=== PATIENT | male | born 1945 | race Caucasian/White ===

== ENCOUNTER 2020-06-17 09:18 | Inpatient (IN) | payer MEDICARE, BC ==
[2020-06-17] MEDS ORDERED: HYDROmorphone 0.5 MG/0.5 ML Syringe IVPUSH ONE ×2 (09:59→15:27)
[2020-06-17] MEDS ORDERED: Ondansetron 4 MG/2 ML SDV IVPUSH ONE (09:59)
[2020-06-17] MEDS ORDERED: Sodium Chloride 0.9% 10 ML Syringe FLUSH PRN ×2 (09:59→11:59)
[2020-06-17] MEDS ORDERED: Sodium Chloride 0.9% 1,000 ML IV SCH (10:00)
[2020-06-17] MEDS ORDERED: HYDROmorphone 0.5 MG/0.5 ML Syringe ONE ×2 (10:21→22:36)
[2020-06-17] MEDS ORDERED: Ondansetron 4 MG/2 ML SDV ONE ×2 (10:21→21:32)
[2020-06-17] MEDS ORDERED: Sodium Chloride 0.9% 1,000 ML ONE (10:22)
--- NOTE | 2020-06-17 10:41 | CR ---
Abdomen: Supine view of the abdomen was obtained as well as upright study. Comparison: No prior abdominal imaging. Dilated small bowel loops are seen which show evidence of air-fluid levels. Findings are compatible with mid to distal small bowel obstruction. No free air is identified. No soft tissue abnormality is appreciated. Surgical clips are seen within the upper right abdomen. Bony structures appear within normal limits for the patient's age. Impression: 1. Findings compatible with fairly high-grade mid to distal small bowel obstruction. Diagnostic code #5 This report was dictated in MDT
[2020-06-17] MEDS ORDERED: Iopamidol 612 MG/ML 100 ML Bottle IVPUSH ONE (11:59)
[2020-06-17] MEDS ORDERED: Diatrizoate Meglumine/Diatrizoate Sodium 37% 120 ML Bottle PO ONE (11:59)
--- NOTE | 2020-06-17 12:51 | EDM.PDOC ---
ED HPI GENERAL MEDICAL PROBLEM - General Chief Complaint: Abdominal Pain Stated Complaint: ABDOMINAL PAIN Time Seen by Provider: 06/17/20 09:36 Source of Information: Reports: Patient, RN Notes Reviewed - History of Present Illness INITIAL COMMENTS - FREE TEXT/NARRATIVE: 75 yr old male with onset of abd pain last evening. Pain continues today, intermitent severe cramping. He has had nausea, no vomiting. No BM for 3 days which is very unusual for him. No chest pain, cough, fever or chills. Hx of "perforated ulcer about 3 yrs ago". Had open surgery at that time in [place]. No prior GI sx leading up to onset of pain yesterday. Hx of prior Appy. about 14 yrs ago. Abdominal Pain Score (Numeric/FACES): 5 - Related Data Allergies Allergy/AdvReac Type Severity Reaction Status Date / Time No Known Allergies Allergy Verified 06/17/20 09:28 Home Meds: Home Meds . [No Known Home Meds] 06/17/20 [History] Past Medical History - Infectious Disease History Infectious Disease History: Reports: Chicken Pox, Measles - Past Surgical History HEENT Surgical History: Reports: Tonsillectomy GI Surgical History: Reports: Appendectomy, Hernia, Inguinal Social & Family History - Tobacco Use Smoking Status *Q: Current Every Day Smoker Years of Tobacco use: 50 Packs/Tins Daily: 1 - Caffeine Use Caffeine Use: Reports: None - Recreational Drug Use Recreational Drug Use: No ED ROS GENERAL - Review of Systems Review Of Systems: See Below Constitutional: Denies: Fever, Chills, Diaphoresis HEENT: Reports: No Symptoms Respiratory: Denies: Shortness of Breath, Cough Cardiovascular: Denies: Chest Pain GI/Abdominal: Reports: Abdominal Pain, Constipation, Nausea. Denies: Diarrhea, Hematochezia, Melena, Vomiting Musculoskeletal: Reports: No Symptoms Skin: Reports: No Symptoms Neurological: Reports: No Symptoms ED EXAM, GI/ABD - Physical Exam Exam: See Below General Appearance: Alert, Moderate Distress Head: Atraumatic Neck: Supple Respiratory/Chest: No Respiratory Distress, Lungs Clear, Normal Breath Sounds Cardiovascular: Regular Rate, Rhythm GI/Abdominal Exam: Guarding (mild), Rebound (mild), Tender (moderate tenderness upper, mid and L lower abd) Rectal (Males) Exam: No: Rectal Fissure Back Exam: No: CVA Tenderness (R) Extremities: Normal Inspection, Normal Range of Motion. No: Pedal Edema, Leg Pain Neurological: Alert, Oriented, No Motor/Sensory Deficits Skin Exam: Warm, Dry, Normal Color Course - Vital Signs Last Recorded V/S: Last Vital Signs Temp 97.1 F 06/17/20 09:28 Pulse 79 06/17/20 09:28 Resp 13 06/17/20 09:28 BP 151/87 H 06/17/20 09:28 Pulse Ox 93 L 06/17/20 09:28 - Orders/Labs/Meds Orders: Active Orders 24 hr Category Date Time Status Gastrointestinal Tube Mgmt [RC] ASDIRECTED Care 06/17/20 13:36 Active Peripheral IV Care [RC] . DIRECTED Care 06/17/20 09:59 Active Abdomen 1V Upright [CR] Stat Exams 06/17/20 13:36 Ordered Chest 1V Frontal [CR] Stat Exams 06/17/20 13:36 Ordered Lactated Ringers [Ringers, Lactated] 500 ml Med 06/17/20 13:28 Active IV .BOLUS Sodium Chloride 0.9% [Normal Saline] 1,000 ml Med 06/17/20 10:00 Active IV ONETIME Sodium Chloride 0.9% [Saline Flush] Med 06/17/20 09:59 Active 10 ml FLUSH ASDIRECTED PRN Sodium Chloride 0.9% [Saline Flush] Med 06/17/20 11:59 Active 10 ml FLUSH ONETIME PRN NG [Nasogastric Orogastric Tube Insertion] [OM.PC] Oth 06/17/20 13:36 Ordered Routine Peripheral IV Insertion Adult [OM.PC] Stat Oth 06/17/20 09:58 Ordered Medication Orders Sodium Chloride (Normal Saline) 1,000 mls @ 999 mls/hr IV ONETIME ROCÍO Last Admin: 06/17/20 10:26 Dose: 999 mls/hr Documented by: JIE Lactated Ringer's (Ringers, Lactated) 500 mls @ 999 mls/hr IV .BOLUS ONE Stop: 06/17/20 13:58 Last Admin: 06/17/20 13:30 Dose: 999 mls/hr Documented by: VALENTINA Sodium Chloride (Saline Flush) 10 ml FLUSH ASDIRECTED PRN PRN Reason: Keep Vein Open Last Admin: 06/17/20 10:27 Dose: 10 ml Documented by: JIE Sodium Chloride (Saline Flush) 10 ml FLUSH ONETIME PRN PRN Reason: Keep Vein Open Last Admin: 06/17/20 12:39 Dose: 10 ml Documented by: MIRIAN Labs: Laboratory Tests 06/17/20 06/17/20 06/17/20 Range/Units 09:40 09:40 09:40 WBC 5.27 (4.23-9.07) K/mm3 RBC 5.68 (4.63-6.08) M/mm3 Hgb 18.7 H (13.7-17.5) gm/dl Hct 55.2 H (40.1-51.0) % MCV 97.2 H (79.0-92.2) fl MCH 32.9 H (25.7-32.2) pg MCHC 33.9 (32.2-35.5) g/dl RDW Std Deviation 47.5 H (35.1-43.9) fL Plt Count 309 (163-337) K/mm3 MPV 9.7 (9.4-12.3) fl Neut % (Auto) 59.0 (34.0-67.9) % Lymph % (Auto) 16.3 L (21.8-53.1) % [place] % (Auto) 24.7 H (5.3-12.2) % Eos % (Auto) 0 L (0.8-7.0) Baso % (Auto) 0.0 L (0.1-1.2) % Neut # (Auto) 3.11 (1.78-5.38) K/mm3 Lymph # (Auto) 0.86 L (1.32-3.57) K/mm3 [place] # (Auto) 1.30 H (0.30-0.82) K/mm3 Eos # (Auto) 0.00 L (0.04-0.54) K/mm3 Baso # (Auto) 0.00 L (0.01-0.08) K/mm3 Manual Slide Review Abnormal smear Sodium 135 L (136-145) mEq/L Potassium 4.2 (3.5-5.1) mEq/L Chloride 94 L (98-107) mEq/L Carbon Dioxide 31 (21-32) mEq/L Anion Gap 14.2 (5-15) BUN 47 H (7-18) mg/dL Creatinine 1.6 H (0.7-1.3) mg/dL Est Cr Clr Drug Dosing 45.13 mL/min Estimated GFR (MDRD) 43 (>60) mL/min BUN/Creatinine Ratio 29.4 H (14-18) Glucose 159 H (83-115) mg/dL Calcium 9.4 (8.5-10.1) mg/dL Total Bilirubin 0.9 (0.2-1.0) mg/dL AST 20 (15-37) U/L ALT 20 (16-63) U/L Alkaline Phosphatase 63 (46-116) U/L C-Reactive Protein 4.7 H* (<1.0) mg/dL Total Protein 7.9 (6.4-8.2) g/dl Albumin 3.2 L (3.4-5.0) g/dl Globulin 4.7 gm/dL Albumin/Globulin Ratio 0.7 L (1-2) Lipase 60 L (73-393) U/L Meds: Medications Generic Name Dose Route Start Last Admin Trade Name Freq PRN Reason Stop Dose Admin Sodium Chloride 1,000 mls @ 999 mls/hr 06/17/20 10:00 06/17/20 10:26 Normal Saline IV 999 mls/hr ONETIME ROCÍO Administration Lactated Ringer's 500 mls @ 999 mls/hr 06/17/20 13:28 06/17/20 13:30 Ringers, Lactated IV 06/17/20 13:58 999 mls/hr .BOLUS ONE Administration Sodium Chloride 10 ml 06/17/20 09:59 06/17/20 10:27 Saline Flush FLUSH 10 ml ASDIRECTED PRN Administration Keep Vein Open Sodium Chloride 10 ml 06/17/20 11:59 06/17/20 12:39 Saline Flush FLUSH 10 ml ONETIME PRN Administration Keep Vein Open Discontinued Medications Generic Name Dose Route Start Last Admin Trade Name Freq PRN Reason Stop Dose Admin Diatrizoate Meglum/Diatrizoate Sod 90 ml 06/17/20 11:59 06/17/20 12:40 Gastrografin 37% PO 06/17/20 12:00 90 ml ONETIME ONE Administration Hydromorphone HCl 0.5 mg 06/17/20 09:59 06/17/20 10:29 Dilaudid IVPUSH 06/17/20 10:00 0.25 mg ONETIME ONE Administration Hydromorphone HCl Confirm 06/17/20 10:21 06/17/20 10:28 Dilaudid Administered 06/17/20 10:22 Not Given Dose 0.5 mg .ROUTE .STK-MED ONE Sodium Chloride Confirm 06/17/20 10:22 06/17/20 10:28 Normal Saline Administered 06/17/20 10:23 Not Given Dose 1,000 mls @ as directed .ROUTE .STK-MED ONE Iopamidol 100 ml 06/17/20 11:59 06/17/20 12:39 Isovue-300 (61%) IVPUSH 06/17/20 12:00 100 ml ONETIME ONE Administration Ondansetron HCl 4 mg 06/17/20 09:59 06/17/20 10:26 Zofran IVPUSH 06/17/20 10:00 4 mg ONETIME ONE Administration Ondansetron HCl Confirm 06/17/20 10:21 06/17/20 10:29 Zofran Administered 06/17/20 10:22 Not Given Dose 4 mg .ROUTE .STK-MED ONE - Re-Assessments/Exams Free Text/Narrative Re-Assessment/Exam: 06/17/20 11:30. Abd Xrays show multiple air fluid levels, will get Abd/pelvic CT with oral and IV contrast. 06/17/20 13:32. Abd CT show fluid and air fluid fill loops of small bowel compatable with distal small bowel obstruction. Have ordered NG tube. Have disccused with Dr Rod, Gen Surgeon civil engineering draftsperson will come see patient. Departure - Departure Time of Disposition: 13:40 Disposition: Admitted As Inpatient 68 Condition: Serious Clinical Impression: Small bowel obstruction - Discharge Information Referrals: PCP,Not In Area [Primary Care Provider] - Forms: ED Department Discharge Sepsis Event Note (ED) - Evaluation Sepsis Screening Result: No Definite Risk - Focused Exam Vital Signs: Vital Signs Temp Pulse Resp BP Pulse Ox 06/17/20 09:28 97.1 F 79 13 151/87 H 93 L ED Communication - Discussed Case With (1) Discussed Case With (1): Admitting Provider (Decision to admit at about 13:40.) - My Orders Last 24 Hours: My Active Orders 06/17/20 09:58 Peripheral IV Insertion Adult [OM.PC] Stat 06/17/20 09:59 Peripheral IV Care [RC] . DIRECTED Sodium Chloride 0.9% [Saline Flush] 10 ml FLUSH ASDIRECTED PRN 06/17/20 10:00 Sodium Chloride 0.9% [Normal Saline] 1,000 ml IV ONETIME 06/17/20 11:59 Sodium Chloride 0.9% [Saline Flush] 10 ml FLUSH ONETIME PRN 06/17/20 13:28 Lactated Ringers [Ringers, Lactated] 500 ml IV .BOLUS 06/17/20 13:36 Gastrointestinal Tube Mgmt [RC] ASDIRECTED Abdomen 1V Upright [CR] Stat Chest 1V Frontal [CR] Stat NG [Nasogastric Orogastric Tube Insertion] [OM.PC] Routine - Assessment/Plan Last 24 Hours: My Active Orders 06/17/20 09:58 Peripheral IV Insertion Adult [OM.PC] Stat 06/17/20 09:59 Peripheral IV Care [RC] . DIRECTED Sodium Chloride 0.9% [Saline Flush] 10 ml FLUSH ASDIRECTED PRN 06/17/20 10:00 Sodium Chloride 0.9% [Normal Saline] 1,000 ml IV ONETIME 06/17/20 11:59 Sodium Chloride 0.9% [Saline Flush] 10 ml FLUSH ONETIME PRN 06/17/20 13:28 Lactated Ringers [Ringers, Lactated] 500 ml IV .BOLUS 06/17/20 13:36 Gastrointestinal Tube Mgmt [RC] ASDIRECTED Abdomen 1V Upright [CR] Stat Chest 1V Frontal [CR] Stat NG [Nasogastric Orogastric Tube Insertion] [OM.PC] Routine
--- NOTE | 2020-06-17 13:11 | CT ---
CT abdomen and pelvis Technique: Multiple axial sections were obtained from above the dome of the diaphragm inferiorly through the pubic symphysis. Intravenous and oral contrast was given. Most of the oral contrast is seen within the stomach and within proximal small bowel. More distal and mid bowel opacification did not occur. Delayed images were obtained through the bladder. Reconstructed coronal and sagittal images were obtained. Comparison: Prior abdominal x-ray performed earlier on the same day (10:09 AM). Findings: Fluid and air-filled dilated loops of small bowel are noted. Findings have the appearance of distal small bowel obstruction. There are areas of fluid being seen within the right abdomen and within the pelvis. Etiology of the small bowel obstruction is not seen on this exam which raises the possibility of adhesion. Surgical clips seen within the right lower abdomen. Visualized lung bases shows mild areas of atelectasis. Slight fibrosis also noted within both lung bases. Liver contains no focal abnormality. Gallbladder is dilated and shows no calcified gallstones. Pancreas shows no discrete abnormality. Kidneys show symmetric contrast enhancement but without hydronephrosis or mass. Aorta shows no aneurysm with atherosclerotic calcification being seen within the aortoiliac vessels. No retroperitoneal adenopathy or mesenteric abnormalities are seen. No pelvic mass or adenopathy is appreciated. Appendix is not visualized with certainty. Delayed images shows contrast within the distal ureters and within the bladder. Bone window settings were reviewed which shows mild scattered degenerative change within the spine. No acute osseous finding is appreciated. Impression: 1. Dilated fluid and air-filled loops of small bowel compatible with distal small bowel obstruction. Etiology is not visualized and findings most likely represent obstruction from adhesions. 2. Fluid within the right abdomen and within the pelvis. 3. No other acute finding is appreciated on CT study of the abdomen and pelvis. Diagnostic code #5 This report was dictated in MDT
[2020-06-17] MEDS ORDERED: Lactated Ringers 500 ML IV ONE (13:28)
[2020-06-17] MEDS ORDERED: Morphine 2 MG/ML SYRINGE IVPUSH PRN (14:14)
[2020-06-17] MEDS ORDERED: Lactated Ringers 1,000 ML IV SCH ×2 (14:15→23:15)
[2020-06-17] MEDS ORDERED: Sodium Chloride 0.9% 1,000 ML IV ONE (14:20)
--- NOTE | 2020-06-17 14:28 | PCM.HP.2 ---
H&P History of Present Illness - General Date of Service: 06/17/20 Admit Problem/Dx: Admission Diagnosis/Problem Admission Diagnosis/Problem Small bowel obstruction Source of Information: Patient History Limitations: Reports: No Limitations - History of Present Illness Initial Comments - Free Text/Narative: Mr. Espinoza is a 75 yo man who presents with abdominal pain, distention, and vomiting. This started suddenly 3 days ago after riding horses in [place]. He has not had symptoms like this before. History is significant for prior laparotomy for perforated duodenal ulcer in 2017. He has also had an appendectomy and laparoscopic inguinal hernia repair. He takes no medications and denies any chronic health issues. He does smoke cigarettes. In the ER, his lab work indicates dehydration with hemoconcentration and creatinine of 1.6. His WBC is normal, and vital signs are normal. His abdomen is distended, tense and tender but exam does not suggest peritonitis. He has not passed flatus or had a bowel movement since three days ago, and has had minimal PO intake. Abdominal Pain Score (Numeric/FACES): 5 - Related Data Allergies/Adverse Reactions: Allergies Allergy/AdvReac Type Severity Reaction Status Date / Time No Known Allergies Allergy Verified 06/17/20 09:28 Home Medications: Home Meds . [No Known Home Meds] 06/17/20 [History] Past Medical History - Infectious Disease History Infectious Disease History: Reports: Chicken Pox, Measles - Past Surgical History HEENT Surgical History: Reports: Tonsillectomy GI Surgical History: Reports: Appendectomy, Hernia, Inguinal Social & Family History - Tobacco Use Smoking Status *Q: Current Every Day Smoker Years of Tobacco use: 50 Packs/Tins Daily: 1 - Caffeine Use Caffeine Use: Reports: None - Recreational Drug Use Recreational Drug Use: No H&P Review of Systems - Review of Systems: Review Of Systems: See Below General: Reports: Malaise HEENT: Reports: No Symptoms Pulmonary: Reports: No Symptoms Cardiovascular: Reports: No Symptoms Gastrointestinal: Reports: Abdominal Pain, Anorexia, Nausea, Vomiting Genitourinary: Reports: No Symptoms Musculoskeletal: Reports: No Symptoms Skin: Reports: No Symptoms Psychiatric: Reports: No Symptoms Neurological: Reports: No Symptoms Hematologic/Lymphatic: Reports: No Symptoms Immunologic: Reports: No Symptoms Exam - Exam Exam: See Below - Vital Signs Vital Signs: Last Vital Signs Temp 36.2 C 06/17/20 09:28 Pulse 79 06/17/20 09:28 Resp 13 06/17/20 09:28 BP 151/87 H 06/17/20 09:28 Pulse Ox 93 L 06/17/20 09:28 Weight: 79.379 kg - Exam Quality Assessment: Supplemental Oxygen General: Alert, Oriented, Cooperative HEENT: Conjunctiva Clear Neck: Trachea Midline Lungs: Clear to Auscultation, Normal Respiratory Effort Cardiovascular: Regular Rate, Regular Rhythm GI/Abdominal Exam: Distended, Tender, Other (tympanitic. scar from prior laparotomy.) (Male) Exam: No Hernia Rectal (Males) Exam: Deferred Extremities: Normal Inspection Skin: Warm, Dry Neuro Extensive - Mental Status: Alert, Oriented x3, Normal Mood/Affect - Patient Data Lab Results Last 24 hrs: Laboratory Results - last 24 hr 06/17/20 06/17/20 06/17/20 Range/Units 09:40 09:40 09:40 WBC 5.27 (4.23-9.07) K/mm3 RBC 5.68 (4.63-6.08) M/mm3 Hgb 18.7 H (13.7-17.5) gm/dl Hct 55.2 H (40.1-51.0) % MCV 97.2 H (79.0-92.2) fl MCH 32.9 H (25.7-32.2) pg MCHC 33.9 (32.2-35.5) g/dl RDW Std Deviation 47.5 H (35.1-43.9) fL Plt Count 309 (163-337) K/mm3 MPV 9.7 (9.4-12.3) fl Neut % (Auto) 59.0 (34.0-67.9) % Lymph % (Auto) 16.3 L (21.8-53.1) % [place] % (Auto) 24.7 H (5.3-12.2) % Eos % (Auto) 0 L (0.8-7.0) Baso % (Auto) 0.0 L (0.1-1.2) % Neut # (Auto) 3.11 (1.78-5.38) K/mm3 Lymph # (Auto) 0.86 L (1.32-3.57) K/mm3 [place] # (Auto) 1.30 H (0.30-0.82) K/mm3 Eos # (Auto) 0.00 L (0.04-0.54) K/mm3 Baso # (Auto) 0.00 L (0.01-0.08) K/mm3 Manual Slide Review Abnormal smear Sodium 135 L (136-145) mEq/L Potassium 4.2 (3.5-5.1) mEq/L Chloride 94 L (98-107) mEq/L Carbon Dioxide 31 (21-32) mEq/L Anion Gap 14.2 (5-15) BUN 47 H (7-18) mg/dL Creatinine 1.6 H (0.7-1.3) mg/dL Est Cr Clr Drug Dosing 45.13 mL/min Estimated GFR (MDRD) 43 (>60) mL/min BUN/Creatinine Ratio 29.4 H (14-18) Glucose 159 H (83-115) mg/dL Calcium 9.4 (8.5-10.1) mg/dL Total Bilirubin 0.9 (0.2-1.0) mg/dL AST 20 (15-37) U/L ALT 20 (16-63) U/L Alkaline Phosphatase 63 (46-116) U/L C-Reactive Protein 4.7 H* (<1.0) mg/dL Total Protein 7.9 (6.4-8.2) g/dl Albumin 3.2 L (3.4-5.0) g/dl Globulin 4.7 gm/dL Albumin/Globulin Ratio 0.7 L (1-2) Lipase 60 L (73-393) U/L Result Diagrams: 06/17/20 09:40 06/17/20 09:40 Sepsis Event Note - Evaluation Sepsis Screening Result: No Definite Risk - Focused Exam Vital Signs: Vital Signs Temp Pulse Resp BP Pulse Ox 06/17/20 09:28 36.2 C 79 13 151/87 H 93 L Problem List Initiated/Reviewed/Updated: Yes Orders Last 24hrs: Active Orders 24 hr Category Date Time Status Patient Status [ADT] Routine ADT 06/17/20 14:14 Ordered Activity as Tolerated [RC] .Routine Care 06/17/20 14:14 Ordered Antiembolic Devices [RC] PER UNIT ROUTINE Care 06/17/20 14:15 Ordered Gastrointestinal Tube Mgmt [RC] ASDIRECTED Care 06/17/20 13:36 Active Oxygen Therapy [RC] PRN Care 06/17/20 14:14 Ordered Peripheral IV Care [RC] . DIRECTED Care 06/17/20 09:59 Active RT Incentive Spirometry [RC] Q1HWA Care 06/17/20 14:14 Ordered Vital Signs [RC] Q4HR Care 06/17/20 14:14 Ordered Nothing Per Oral Diet [DIET] Diet 06/17/20 Breakfast Ordered Abdomen 1V Upright [CR] Stat Exams 06/17/20 13:36 Ordered Chest 1V Frontal [CR] Stat Exams 06/17/20 13:36 Ordered BASIC METABOLIC PANEL,BMP [CHEM] AM Lab 06/18/20 05:11 Ordered CBC WITH AUTO DIFF [HEME] AM Lab 06/18/20 05:11 Ordered Heparin Sodium Med 06/17/20 14:15 Ordered 5,000 units SUBCUT Q8H Lactated Ringers [Ringers, Lactated] 1,000 ml Med 06/17/20 14:15 Ordered IV ASDIRECTED Morphine Med 06/17/20 14:14 Ordered 1 mg IVPUSH Q4H PRN Sodium Chloride 0.9% [Normal Saline] 1,000 ml Med 06/17/20 10:00 Active IV ONETIME Sodium Chloride 0.9% [Normal Saline] 1,000 ml Med 06/17/20 14:20 Ordered IV ONETIME Sodium Chloride 0.9% [Saline Flush] Med 06/17/20 11:59 Active 10 ml FLUSH ONETIME PRN NG [Nasogastric Orogastric Tube Insertion] [OM.PC] Oth 06/17/20 13:36 Ordered Routine Peripheral IV Insertion Adult [OM.PC] Stat Oth 06/17/20 09:58 Ordered Sequential Compression Device [OM.PC] Routine Oth 06/17/20 14:14 Ordered Resuscitation Status Routine Resus Stat 06/17/20 14:14 Ordered Medication Orders Heparin Sodium (Porcine) (Heparin Sodium) 5,000 units SUBCUT Q8H ROCÍO Sodium Chloride (Normal Saline) 1,000 mls @ 999 mls/hr IV ONETIME ROCÍO Last Admin: 06/17/20 10:26 Dose: 999 mls/hr Documented by: JIE Lactated Ringer's (Ringers, Lactated) 1,000 mls @ 150 mls/hr IV ASDIRECTED ROCÍO Sodium Chloride (Normal Saline) 1,000 mls @ 1,000 mls/hr IV ONETIME ONE Stop: 06/17/20 15:19 Morphine Sulfate (Morphine) 1 mg IVPUSH Q4H PRN PRN Reason: Pain (severe 7-10) Sodium Chloride (Saline Flush) 10 ml FLUSH ONETIME PRN PRN Reason: Keep Vein Open Last Admin: 06/17/20 12:39 Dose: 10 ml Documented by: MIRIAN Assessment/Plan Comment:: Small bowel obstruction, high grade, though patient is not currently ill- appearing and is without signs of peritonitis. Given history of multiple abdominal operations etiology is likely adhesions. Plan: admit to med/surgical unit morphine prn pain NPO with NG decompression/ monitor output. SPis with meds okay. Fluid resuscitation, with 1L NS bolus now and fluids LR @ 150 cc/hr incentive spirometry monitor urine output repeat CBC, BMP in AM heparin 5000 u SC for dvt ppx. SCDs. Non-operative management of SBO for now. Discussed potential need to go to OR if SBO does not resolve in 48-72 hrs. - Mortality Measure Prognosis:: Good
[2020-06-17] MEDS ORDERED: Pantoprazole 40 MG in Sodium Chloride 0.9% 100 ML IV SCH (14:45)
--- NOTE | 2020-06-17 15:08 | CR ---
Chest: Frontal view of the chest was obtained. Comparison: No prior chest imaging is available. Dilated small bowel loops noted within the abdomen. Increased density within both lung bases which is most likely due to atelectasis and basilar interstitial fibrosis. Nasogastric tube is seen with tip lying within the stomach. Heart size is normal. Tortuous thoracic aorta seen. Bony structures are grossly intact. Impression: 1. Increased density within both lung bases most likely representing combination of atelectasis and interstitial fibrosis. 2. Tip of nasogastric tube lies within the stomach. 3. Other findings as noted above. Diagnostic code #3 This report was dictated in MDT
[2020-06-17] MEDS: Pantoprazole 40 MG Vial IV SCH ×2 (18:56→20:51)
[2020-06-17] MEDS: Heparin Sodium 5,000 Units/ML Vial SUBCUT SCH ×2 (18:56→20:52)
[2020-06-17] MEDS ORDERED: Morphine 2 MG/ML SYRINGE IVPUSH ONE (20:41)
--- NOTE | 2020-06-17 21:03 | PCM.SN.2 ---
- Free Text/Narrative Note: Interval update: Since admission, the patient initially put out 1 L from the NG. Only 150 has drained in the past few hours. His pain has steadily increased since admission and is severe. Vitals remain normal but he is distended with developing peritonitis, and I am concerned for a closed loop bowel obstruction which has now been going on for several days. I discussed my recommendation for operative exploration now due to concern for developing ischemic bowel, and the patient is in agreement. Plan for laparotomy with adhesiolysis, possible bowel resection, possible ostomy now.
[2020-06-17] MEDS ORDERED: Albuterol 0.042% 1.25 MG/3 ML Neb Soln NEB STA (21:26)
--- NOTE | 2020-06-17 21:26 | PCM.PREANE ---
Preanesthetic Assessment - Procedure Proposed Procedure: laparotomy - Anesthesia/Transfusion/Family Hx Anesthesia History: Prior Anesthesia Without Reaction Family History of Anesthesia Reaction: No Transfusion History: No Prior Transfusion(s) - Review of Systems General: No Symptoms Pulmonary: No Symptoms Cardiovascular: No Symptoms Gastrointestinal: Abdominal Pain (3 days), Nausea, Vomiting Neurological: No Symptoms Other: Reports: None - Physical Assessment NPO Status Date: 06/16/20 NPO Status Time: 23:00 Vital Signs: Last Vital Signs Temp 98.4 F 06/17/20 17:11 Pulse 78 06/17/20 17:11 Resp 18 06/17/20 17:11 BP 156/96 H 06/17/20 17:11 Pulse Ox 94 L 06/17/20 17:11 Height: 6 ft Weight: 78.154 kg ASA Class: 2E Mental Status: Alert & Oriented x3 Airway Class: Mallampati = 1 Dentition: Reports: Broken Tooth/Teeth (loose front tooth), Missing Tooth/Teeth, Caries Thyro-Mental Finger Breadths: 3 Mouth Opening Finger Breadths: 3 ROM/Head Extension: Full Lungs: Clear to Auscultation, Normal Respiratory Effort Cardiovascular: Regular Rate, Regular Rhythm - Lab Values: Laboratory Last Values WBC 5.27 K/mm3 (4.23-9.07) 06/17/20 09:40 RBC 5.68 M/mm3 (4.63-6.08) 06/17/20 09:40 Hgb 18.7 gm/dl (13.7-17.5) H 06/17/20 09:40 Hct 55.2 % (40.1-51.0) H 06/17/20 09:40 MCV 97.2 fl (79.0-92.2) H 06/17/20 09:40 MCH 32.9 pg (25.7-32.2) H 06/17/20 09:40 MCHC 33.9 g/dl (32.2-35.5) 06/17/20 09:40 RDW Std Deviation 47.5 fL (35.1-43.9) H 06/17/20 09:40 Plt Count 309 K/mm3 (163-337) 06/17/20 09:40 MPV 9.7 fl (9.4-12.3) 06/17/20 09:40 Neut % (Auto) 59.0 % (34.0-67.9) 06/17/20 09:40 Lymph % (Auto) 16.3 % (21.8-53.1) L 06/17/20 09:40 [place] % (Auto) 24.7 % (5.3-12.2) H 06/17/20 09:40 Eos % (Auto) 0 (0.8-7.0) L 06/17/20 09:40 Baso % (Auto) 0.0 % (0.1-1.2) L 06/17/20 09:40 Neut # (Auto) 3.11 K/mm3 (1.78-5.38) 06/17/20 09:40 Lymph # (Auto) 0.86 K/mm3 (1.32-3.57) L 06/17/20 09:40 [place] # (Auto) 1.30 K/mm3 (0.30-0.82) H 06/17/20 09:40 Eos # (Auto) 0.00 K/mm3 (0.04-0.54) L 06/17/20 09:40 Baso # (Auto) 0.00 K/mm3 (0.01-0.08) L 06/17/20 09:40 Manual Slide Review Abnormal smear 06/17/20 09:40 Sodium 135 mEq/L (136-145) L 06/17/20 09:40 Potassium 4.2 mEq/L (3.5-5.1) 06/17/20 09:40 Chloride 94 mEq/L (98-107) L 06/17/20 09:40 Carbon Dioxide 31 mEq/L (21-32) 06/17/20 09:40 Anion Gap 14.2 (5-15) 06/17/20 09:40 BUN 47 mg/dL (7-18) H 06/17/20 09:40 Creatinine 1.6 mg/dL (0.7-1.3) H 06/17/20 09:40 Est Cr Clr Drug Dosing 45.13 mL/min 06/17/20 09:40 Estimated GFR (MDRD) 43 mL/min (>60) 06/17/20 09:40 BUN/Creatinine Ratio 29.4 (14-18) H 06/17/20 09:40 Glucose 159 mg/dL (83-115) H 06/17/20 09:40 Calcium 9.4 mg/dL (8.5-10.1) 06/17/20 09:40 Total Bilirubin 0.9 mg/dL (0.2-1.0) 06/17/20 09:40 AST 20 U/L (15-37) 06/17/20 09:40 ALT 20 U/L (16-63) 06/17/20 09:40 Alkaline Phosphatase 63 U/L (46-116) 06/17/20 09:40 C-Reactive Protein 4.7 mg/dL (<1.0) H* 06/17/20 09:40 Total Protein 7.9 g/dl (6.4-8.2) 06/17/20 09:40 Albumin 3.2 g/dl (3.4-5.0) L 06/17/20 09:40 Globulin 4.7 gm/dL 06/17/20 09:40 Albumin/Globulin Ratio 0.7 (1-2) L 06/17/20 09:40 Lipase 60 U/L (73-393) L 06/17/20 09:40 COVID-19 ([facility]) Negative (NEGATIVE) 06/17/20 14:50 - Imaging/EKG Impressions: ekg 06/06/20 SR 99 RBBB - Allergies Allergies/Adverse Reactions: Allergies Allergy/AdvReac Type Severity Reaction Status Date / Time No Known Allergies Allergy Verified 06/17/20 19:57 - Blood Blood Available: No - Acknowledgements Anesthesia Type Planned: General Anesthesia Pt an Appropriate Candidate for the Planned Anesthesia: Yes Alternatives and Risks of Anesthesia Discussed w Pt/Guardian: Yes Pt/Guardian Understands and Agrees with Anesthesia Plan: Yes PreAnesthesia Questionnaire HEENT History: Reports: Other (See Below) Other HEENT History: pt. states he can be hard of hearing at times Cardiovascular History: Reports: None Respiratory History: Reports: None Gastrointestinal History: Reports: Helicobacter Pylori, Other (See Below) Other Gastrointestinal History: perforated duodenal ulcer in 2017 Oncologic (Cancer) History: Reports: None - Infectious Disease History Infectious Disease History: Reports: Chicken Pox, Measles - Past Surgical History HEENT Surgical History: Reports: Tonsillectomy GI Surgical History: Reports: Appendectomy, Hernia, Inguinal, Other (See Below) Other GI Surgeries/Procedures: surgery in 2017 to fix perforated ulcer - SUBSTANCE USE Smoking Status *Q: Current Every Day Smoker Tobacco Use Within Last Twelve Months: Cigarettes Second Hand Smoke Exposure: Yes Days Per Week of Alcohol Use: 7 Number of Drinks Per Day: 2 Total Drinks Per Week: 14 Recreational Drug Use History: No - HOME MEDS Home Medications: Home Meds . [No Known Home Meds] 06/17/20 [History] - CURRENT (IN HOUSE) MEDS Current Meds: Current Medications Heparin Sodium (Porcine) (Heparin Sodium) 5,000 units SUBCUT Q8H [facility] Last Admin: 06/17/20 18:56 Dose: Not Given Documented by: Sodium Chloride (Normal Saline) 1,000 mls @ 999 mls/hr IV ONETIME [facility] Last Admin: 06/17/20 10:26 Dose: 999 mls/hr Documented by: Lactated Ringer's (Ringers, Lactated) 1,000 mls @ 150 mls/hr IV ASDIRECTED [facility] Last Admin: 06/17/20 19:12 Dose: 150 mls/hr Documented by: Morphine Sulfate (Morphine) 1 mg IVPUSH Q4H PRN PRN Reason: Pain (severe 7-10) Last Admin: 06/17/20 17:14 Dose: 1 mg Documented by: Pantoprazole Sodium (Protonix Iv) 40 mg IV BID [facility] Last Admin: 06/17/20 20:51 Dose: 40 mg Documented by: Sodium Chloride (Saline Flush) 10 ml FLUSH ONETIME PRN PRN Reason: Keep Vein Open Last Admin: 06/17/20 12:39 Dose: 10 ml Documented by: Discontinued Medications Diatrizoate Meglum/Diatrizoate Sod (Gastrografin 37%) 90 ml PO ONETIME ONE Stop: 06/17/20 12:00 Last Admin: 06/17/20 12:40 Dose: 90 ml Documented by: Hydromorphone HCl (Dilaudid) 0.5 mg IVPUSH ONETIME ONE Stop: 06/17/20 10:00 Last Admin: 06/17/20 10:29 Dose: 0.25 mg Documented by: Hydromorphone HCl (Dilaudid) Confirm Administered Dose 0.5 mg .ROUTE .STK-MED ONE Stop: 06/17/20 10:22 Last Admin: 06/17/20 10:28 Dose: Not Given Documented by: Hydromorphone HCl (Dilaudid) 0.25 mg IVPUSH ONETIME ONE Stop: 06/17/20 15:28 Last Admin: 06/17/20 15:38 Dose: 0.25 mg Documented by: Sodium Chloride (Normal Saline) Confirm Administered Dose 1,000 mls @ as directed .ROUTE .STK-MED ONE Stop: 06/17/20 10:23 Last Admin: 06/17/20 10:28 Dose: Not Given Documented by: Lactated Ringer's (Ringers, Lactated) 500 mls @ 999 mls/hr IV .BOLUS ONE Stop: 06/17/20 13:58 Last Admin: 06/17/20 13:30 Dose: 999 mls/hr Documented by: Sodium Chloride (Normal Saline) 1,000 mls @ 1,000 mls/hr IV ONETIME ONE Stop: 06/17/20 15:19 Last Admin: 06/17/20 18:56 Dose: Not Given Documented by: Pantoprazole Sodium 40 mg/ (Sodium Chloride) 100 mls @ 200 mls/hr IV BID [facility] Iopamidol (Isovue-300 (61%)) 100 ml IVPUSH ONETIME ONE Stop: 06/17/20 12:00 Last Admin: 06/17/20 12:39 Dose: 100 ml Documented by: Morphine Sulfate (Morphine) 1 mg IVPUSH ONETIME ONE Stop: 06/17/20 20:42 Last Admin: 06/17/20 20:50 Dose: 1 mg Documented by: Ondansetron HCl (Zofran) 4 mg IVPUSH ONETIME ONE Stop: 06/17/20 10:00 Last Admin: 06/17/20 10:26 Dose: 4 mg Documented by: Ondansetron HCl (Zofran) Confirm Administered Dose 4 mg .ROUTE .STK-MED ONE Stop: 06/17/20 10:22 Last Admin: 06/17/20 10:29 Dose: Not Given Documented by: Sodium Chloride (Saline Flush) 10 ml FLUSH ASDIRECTED PRN PRN Reason: Keep Vein Open Last Admin: 06/17/20 10:27 Dose: 10 ml Documented by:
[2020-06-17] MEDS ORDERED: Bupivacaine 0.5%/EPINEPHrine 1:200,000 50 ML MDV ONE (21:28)
[2020-06-17] MEDS ORDERED: Rocuronium 50 MG/5 ML Vial ONE (21:32)
[2020-06-17] MEDS ORDERED: Lidocaine 1% 4 ML ONE (21:32)
[2020-06-17] MEDS ORDERED: Midazolam 1 MG/ML 2 ML SDV ONE (21:33)
[2020-06-17] MEDS ORDERED: Propofol 200 MG/20 ML SDV ONE (21:33)
[2020-06-17] MEDS ORDERED: fentaNYL 250 MCG/5 ML SDV ONE (21:33)
[2020-06-17] MEDS ORDERED: Succinylcholine/Sod PF 100 MG/5 ML SYRINGE IV ONE (21:38)
[2020-06-17] MEDS ORDERED: ceFAZolin 1 GM Vial ONE (21:46)
[2020-06-17] MEDS ORDERED: Ketamine 500 mg/10 ML MDV ONE (22:14)
[2020-06-17] MEDS ORDERED: Lactated Ringers 1,000 ML ONE ×3 (22:32→22:43)
[2020-06-17] MEDS ORDERED: fentaNYL 100 MCG/2 ML SDV ONE (22:52)
[2020-06-17] MEDS ORDERED: fentaNYL 100 MCG/2 ML SDV IVPUSH PRN (22:56)
[2020-06-17] MEDS ORDERED: Ondansetron 4 MG/2 ML SDV IVPUSH PRN (22:56)
[2020-06-17] MEDS ORDERED: HYDROmorphone 0.5 MG/0.5 ML Syringe IVPUSH PRN ×2 (22:56→23:13)
--- NOTE | 2020-06-17 23:21 | PCM.POSTAN ---
POST ANESTHESIA ASSESSMENT - MENTAL STATUS Mental Status: Alert - VITAL SIGNS Vital Signs: Last Vital Signs Temp 97.5 F 06/17/20 20:35 Pulse 96 06/17/20 20:35 Resp 15 06/17/20 20:35 BP 157/98 H 06/17/20 20:35 Pulse Ox 93 L 06/17/20 21:44 2315 93 18 97.7 131/82 94% - RESPIRATORY Respiratory Status: Respiratory Rate WNL, Airway Patent, O2 Saturation Stable, Supplemental Oxygen - CARDIOVASCULAR CV Status: Pulse Rate WNL, Blood Pressure Stable - GASTROINTESTINAL GI Status: No Symptoms - PAIN Pain Score: 0 (denies) - POST OP HYDRATION Hydration Status: Adequate & Stable
--- NOTE | 2020-06-17 23:28 | PCM.PRNOTE ---
- Free Text/Narrative Note: Operative Report Date: 06/17/2020 Operation: exploratory laparotomy, adhesiolysis Indication: small bowel obstruction with peritonitis Surgeon: Tommy Rod MD Findings: most of the small bowel appeared distended and ischemic with initial doubt as to viability on entry. Thick adhesive band causing obstruction id entified and transected. The entire small bowel immediately began to look better and appear viable. There were areas of stenosis where the adhesive band was crossing the small bowel and a few centimeters proximal to the ileocecal junction, but this looked and felt as though enteric contents would pass through without significant resistance. The NG tube was palpated in the stomach. Detailed Report: The patient was taken to the OR emergently from the wards for exploratory laparotomy. He was positioned supine with arms out and general endotracheal anesthesia initiated. A zaragoza catheter was placed. The abdomen was clipped, prepped and draped in sterile fashion. Time out was performed confirming patient identity and procedure to be performed. A midline laparotomy incision was made from the epigastrium to a point midway between the umbilicus and the pubis, after injecting 20 cc 0.5% marcaine with epinephrine along the incision line. Monopolar energy was used to dissect through subcutaneous tissue to fascia. The fascia was grasped and elevated with clamps on either side of midline, and the peritoneal cavity was entered sharply using the scalpel. There were no adhesions to the anterior abdominal wall. The incision was extended, and the small bowel appeared dark purple and distended. The small bowel was eviscerated. Bowel was traced to the Ligament of Treitz. The first 40 cm of small bowel appeared pink and normal. Beyond this, the bowel appeared dusky and of questionable viability. As the small bowel was inspected, a thick fibrous band of scar tissue was identified as the source of obstruction. This was divided sharply, and almost immediately the entire small bowel appeared to liven. After a few minutes, it seemed that no resection would be necessary. There was some stenosis of the bowel where the band had compressed the small bowel, and an area of dark discoloration and narrowing near the ileocecal junction, but this segment felt soft and big enough to permit passage of enteric contents without a problem. The abdomen was irrigated and suctioned. Small bowel was reduced back into the abdomen and the incision was closed at the level of fascia with running 0 PDS suture. Skin was closed with kamlesh and dressed with gauze and tape. About 400 cc of fluid was suctioned from the abdomen prior to irrigation, and about 300 cc was aspirated from the NG tube during the case. The patient tolerated the procedure well, was extubated and transferred to the recovery unit in stable condition.
[2020-06-18] MEDS: Heparin Sodium 5,000 Units/ML Vial SUBCUT SCH ×4 (00:03→21:55)
[2020-06-18] MEDS ORDERED: Ketorolac 15 MG/ML SDV IVPUSH SCH ×2 (06:00)
--- NOTE | 2020-06-18 08:44 | PCM.SN.2 ---
- Free Text/Narrative Note: POD 1 s/p laparotomy and adhesiolysis for SBO S: feeling much better, pain rated at 0-1. 800 cc of feculent liquid in NG canister. Good urine output overnight. O: AF-VSS, estimated IV fluid intake is 6L since arrival, with total of about 3 L out. urine output appears markedly increased since OR Labs this morning look pretty good, Cr is 1.5 from 1.6, baseline is unknown Awake and alert, no distress NG in place with feculent drainage RRR abd dressing intact Zaragoza in place with miriam urine A: Doing much better after operation last night. Expect ileus to last next few days. P: -discontinue toradol given minimal pain and elevated creatinine. -decrease IV fluids to 100 cc/hr from 200. -IS, OOB today -NPO, ice chips okay -record NG and urine output, maintain zaragoza for today, expect removal tonight -repeat BMP in AM -heparin, SCD for DVT ppx
[2020-06-18] MEDS: Lactated Ringers 1,000 ML IV SCH ×2 (09:14→18:47)
[2020-06-18] MEDS: Pantoprazole 40 MG Vial IV SCH ×2 (09:17→21:55)
--- NOTE | 2020-06-18 17:33 | PCM48HPAN ---
Post Anesthesia Note - EVALUATION WITHIN 48HRS OF ANESTHETIC Vital Signs in Normal Range: Yes Patient Participated in Evaluation: Yes Respiratory Function Stable: Yes Airway Patent: Yes Cardiovascular Function Stable: Yes Hydration Status Stable: Yes Pain Control Satisfactory: Yes Nausea and Vomiting Control Satisfactory: Yes Mental Status Recovered: Yes Vital Signs: Last Vital Signs Temp 98.6 F 06/18/20 12:42 Pulse 97 06/18/20 12:42 Resp 20 06/18/20 12:42 BP 108/64 06/18/20 12:42 Pulse Ox 94 L 06/18/20 12:42 - COMMENTS/OBSERVATIONS Free Text/Narrative:: Patient states he gets up to walk. Feels good. Minimal pain as not taking pain meds. Encouraged to stay on top of pain. He refuses meds as not hurting.
[2020-06-19] MEDS: Lactated Ringers 1,000 ML IV SCH (04:32)
[2020-06-19] MEDS: Heparin Sodium 5,000 Units/ML Vial SUBCUT SCH ×3 (06:43→21:52)
--- NOTE | 2020-06-19 08:48 | PCM.SN.2 ---
- Free Text/Narrative Note: POD 2 s/p laparotomy and adhesiolysis for small bowel obstruction S: pain is minimal. Had episode of fecal incontinence with liquid bloody stool. Refusing heparin. Reports some flatus. O: AF HR 90s BP ~ 120/60 RR 16 on room air SpO2 >95% Creatinine down to 1.0. UOP ~ 50 cc/hr. NG output currently at rate of about 600 cc/day No distress, awake and alert NG output more bilious in appearance Breathing comfortably RRR distal extremities warm, well perfused, no edema Abdomen is distended, soft, minimally tender, incision is clean, dry, intact urinary catheter in place with tim yellow output A: Overall doing well. Awaiting resolution of post op ileus. P: Dilaudid as needed for pain. Scheduled toradol 15 mg q6h given improvement in creatinine. IS, OOB, ambulating Continue NG decompression, low intermittent wall suction switch to D5 1/2 NS with KCl @ 100 cc/hr remove zaragoza catheter, follow up trial of void ppi, heparin (which patient refuses), SCDs ordered for ulcer, DVT ppx labs only as needed
[2020-06-19] MEDS: D5 1/2 NS w/ 20 mEq/L KCl 1,000 ML IV SCH ×2 (09:04→19:31)
[2020-06-19] MEDS: Pantoprazole 40 MG Vial IV SCH ×2 (09:04→20:42)
[2020-06-19] MEDS: Ketorolac 15 MG/ML SDV IVPUSH SCH ×3 (12:26→23:52)
[2020-06-20] MEDS: D5 1/2 NS w/ 20 mEq/L KCl 1,000 ML IV SCH ×2 (05:05→15:15)
[2020-06-20] MEDS: Heparin Sodium 5,000 Units/ML Vial SUBCUT SCH ×3 (05:19→22:23)
[2020-06-20] MEDS: Ketorolac 15 MG/ML SDV IVPUSH SCH (05:46)
[2020-06-20] MEDS: Pantoprazole 40 MG Vial IV SCH ×2 (09:24→21:03)
[2020-06-20] MEDS: Aspirin 81 MG Tab.Chew PO SCH ×2 (09:25→09:29)
--- NOTE | 2020-06-20 10:12 | PCM.SN.2 ---
- Free Text/Narrative Note: POD 3 s/p laparotomy and adhesiolysis S: minimal pain. Reports brown, liquid bowel movements and passing some flatus. O: AF-VSS NG with less output, now appears watery, nonbilious Abdominal incision clean and dry without sign of erythema. Distended, tympanitic, soft, appropriately tender A: Overall doing well. Ileus seems to be resolving, though he remains distended. P: Trial NG clamping Aspirin 81 mg; patient refusing heparin, toradol Ambulate, IS, OOB, wean O2 Continue mIVF @ 100 cc/hr May remove NG later and advance diet if continuing to pass flatus and there is no big gastric residual in a few hours
[2020-06-21] MEDS: D5 1/2 NS w/ 20 mEq/L KCl 1,000 ML IV SCH (01:30)
[2020-06-21] MEDS: Heparin Sodium 5,000 Units/ML Vial SUBCUT SCH (06:42)
[2020-06-21] MEDS: Aspirin 81 MG Tab.Chew PO SCH (08:23)
[2020-06-21] MEDS: Pantoprazole 40 MG Vial IV SCH (08:23)
--- NOTE | 2020-06-21 08:54 | PCM.DCSUM1 ---
Discharge Summary - Hospital Course Free Text/Narrative:: Mr. Espinoza presented to the emergency room on 06/17/2020 with a small bowel obstruction due to adhesive disease. Although he appeared relatively well at initial presentation and NG decompression yielded over 1 L, he had worsening pain and signs of developing peritonitis within a few hours of admission. His vitals remained normal, but the decision was made to go to the OR for exploratory laparotomy. In the OR, nearly the entire small bowel appeared dusky and ischemic. After evisceration and lysis of a single thick band of scar tissue, the bowel immediately reperfused and appeared viable. No bowel resection was deemed necessary. His postoperative course was fairly uneventful as we awaited resolution of his ileus. By post op day 3 he was passing flatus, stool, and had very little watery output from his NG. The NG was removed and diet was slowly advanced, which he tolerated. He was significantly less distended on POD 4 and deemed fit for discharge at that time. Of note, the patient was kept on IV PPI during hospitalization given history of PUD, and he refused heparin shots. Diagnosis: Stroke: No - Discharge Data Discharge Date: 06/21/20 Discharge Disposition: Home, Self-Care 01 Condition: Good - Referral to Home Health Primary Care Physician: PCP Not In Area - Patient Instructions Diet: Usual Diet as Tolerated Activity: No Lifting Over 10 Pounds, No Strenuous Activities Showering/Bathing: May Shower, No Tub Bathing/Swimming Wound/Incision Care: Keep Operative Site/Wound Site Clean and Dry Notify Provider of: Fever, Increased Pain, Swelling and Redness, Drainage, Nausea and/or Vomiting - Discharge Plan *PRESCRIPTION DRUG MONITORING PROGRAM REVIEWED*: Not Applicable *COPY OF PRESCRIPTION DRUG MONITORING REPORT IN PATIENT DOUGLAS: Not Applicable Prescriptions/Med Rec: Ondansetron [Ondansetron ODT] 4 mg PO Q6H PRN #15 tab.rapdis PRN Reason: Nausea oxyCODONE 5 mg PO Q6H PRN #15 tab PRN Reason: Pain Home Medications: Home Meds Ondansetron [Ondansetron ODT] 4 mg PO Q6H PRN #15 tab.rapdis 06/21/20 [Rx] oxyCODONE 5 mg PO Q6H PRN #15 tab 06/21/20 [Rx] Oxygen Therapy Mode: Room Air Patient Handouts: Steps to Quit Smoking - Discharge Summary/Plan Comment DC Time >30 min.: No - Patient Data Vitals - Most Recent: Last Vital Signs Temp 36.5 C 06/21/20 05:18 Pulse 82 06/21/20 05:18 Resp 20 06/21/20 05:18 BP 133/70 06/21/20 05:18 Pulse Ox 91 L 06/21/20 05:18 Weight - Most Recent: 79.424 kg I&O - Last 24 hours: Intake & Output 06/20/20 06/21/20 06/21/20 22:59 06:59 14:59 Intake Total 1708 1200 Output Total 1000 Balance 1708 200 Med Orders - Current: Current Medications Aspirin (Aspirin) 81 mg PO DAILY [facility] Last Admin: 06/21/20 08:23 Dose: Not Given Documented by: Heparin Sodium (Porcine) (Heparin Sodium) 5,000 units SUBCUT Q8H [facility] Last Admin: 06/21/20 06:42 Dose: Not Given Documented by: Hydromorphone HCl (Dilaudid) 0.5 mg IVPUSH Q2H PRN PRN Reason: Pain Potassium Chloride/Dextrose/Sod Cl (D5 1/2 Ns W/ 20 Meq/L Kcl) 1,000 mls @ 100 mls/hr IV ASDIRECTED [facility] Last Admin: 06/21/20 01:30 Dose: 100 mls/hr Documented by: Ondansetron HCl (Zofran) 4 mg IVPUSH ONETIME PRN PRN Reason: Nausea/Vomiting Pantoprazole Sodium (Protonix Iv) 40 mg IV BID [facility] Last Admin: 06/21/20 08:23 Dose: 40 mg Documented by: Sodium Chloride (Saline Flush) 10 ml FLUSH ONETIME PRN PRN Reason: Keep Vein Open Last Admin: 06/17/20 12:39 Dose: 10 ml Documented by: Discontinued Medications Albuterol (Proventil Neb Soln) 1.25 mg NEB ONETIME STA Stop: 06/17/20 21:27 Last Admin: 06/17/20 21:42 Dose: 1.25 mg Documented by: Bupivacaine HCl/Epinephrine Bitart (Marcaine 0.5%/Epinephrine 1:200,000) Confirm Administered Dose 50 ml .ROUTE .STK-MED ONE Stop: 06/17/20 21:29 Last Admin: 06/17/20 22:14 Dose: 20 ml Documented by: Cefazolin Sodium (Ancef) Confirm Administered Dose 2 gm .ROUTE .STK-MED ONE Stop: 06/17/20 21:47 Diatrizoate Meglum/Diatrizoate Sod (Gastrografin 37%) 90 ml PO ONETIME ONE Stop: 06/17/20 12:00 Last Admin: 06/17/20 12:40 Dose: 90 ml Documented by: Fentanyl (Sublimaze) Confirm Administered Dose 250 mcg .ROUTE .STK-MED ONE Stop: 06/17/20 21:34 Fentanyl (Sublimaze) Confirm Administered Dose 100 mcg .ROUTE .STK-MED ONE Stop: 06/17/20 22:53 Fentanyl (Sublimaze) 50 mcg IVPUSH Q5M PRN PRN Reason: Pain Glycopyrrolate () Confirm Administered Dose 1 mg .ROUTE .STK-MED ONE Stop: 06/17/20 22:37 Hydromorphone HCl (Dilaudid) 0.5 mg IVPUSH ONETIME ONE Stop: 06/17/20 10:00 Last Admin: 06/17/20 10:29 Dose: 0.25 mg Documented by: Hydromorphone HCl (Dilaudid) Confirm Administered Dose 0.5 mg .ROUTE .STK-MED O NE Stop: 06/17/20 10:22 Last Admin: 06/17/20 10:28 Dose: Not Given Documented by: Hydromorphone HCl (Dilaudid) 0.25 mg IVPUSH ONETIME ONE Stop: 06/17/20 15:28 Last Admin: 06/17/20 15:38 Dose: 0.25 mg Documented by: Hydromorphone HCl (Dilaudid) Confirm Administered Dose 0.5 mg .ROUTE .STK-MED ONE Stop: 06/17/20 22:37 Hydromorphone HCl (Dilaudid) 0.5 mg IVPUSH Q10M PRN PRN Reason: Pain (severe 7-10) Sodium Chloride (Normal Saline) 1,000 mls @ 999 mls/hr IV ONETIME [facility] Last Admin: 06/17/20 10:26 Dose: 999 mls/hr Documented by: Sodium Chloride (Normal Saline) Confirm Administered Dose 1,000 mls @ as directed .ROUTE .STK-MED ONE Stop: 06/17/20 10:23 Last Admin: 06/17/20 10:28 Dose: Not Given Documented by: Lactated Ringer's (Ringers, Lactated) 500 mls @ 999 mls/hr IV .BOLUS ONE Stop: 06/17/20 13:58 Last Admin: 06/17/20 13:30 Dose: 999 mls/hr Documented by: Lactated Ringer's (Ringers, Lactated) 1,000 mls @ 150 mls/hr IV ASDIRECTED [facility] Last Admin: 06/17/20 19:12 Dose: 150 mls/hr Documented by: Sodium Chloride (Normal Saline) 1,000 mls @ 1,000 mls/hr IV ONETIME ONE Stop: 06/17/20 15:19 Last Admin: 06/17/20 18:56 Dose: Not Given Documented by: Pantoprazole Sodium 40 mg/ (Sodium Chloride) 100 mls @ 200 mls/hr IV BID [facility] Lidocaine HCl (Xylocaine-Mpf 1%) Confirm Administered Dose 4 mls @ as directed .ROUTE .STK-MED ONE Stop: 06/17/20 21:33 Lactated Ringer's (Ringers, Lactated) Confirm Administered Dose 1,000 mls @ as directed .ROUTE .STK-MED ONE Stop: 06/17/20 22:33 Lactated Ringer's (Ringers, Lactated) Confirm Administered Dose 1,000 mls @ as directed .ROUTE .STK-MED ONE Stop: 06/17/20 22:33 Lactated Ringer's (Ringers, Lactated) Confirm Administered Dose 1,000 mls @ as directed .ROUTE .STK-MED ONE Stop: 06/17/20 22:44 Lactated Ringer's (Ringers, Lactated) 1,000 mls @ 200 mls/hr IV ASDIRECTED [facility] Last Admin: 06/18/20 03:42 Dose: 200 mls/hr Documented by: Lactated Ringer's (Ringers, Lactated) 1,000 mls @ 100 mls/hr IV ASDIRECTED [facility] Last Admin: 06/19/20 04:32 Dose: 100 mls/hr Documented by: Iopamidol (Isovue-300 (61%)) 100 ml IVPUSH ONETIME ONE Stop: 06/17/20 12:00 Last Admin: 06/17/20 12:39 Dose: 100 ml Documented by: Ketamine HCl (Ketalar) Confirm Administered Dose 500 mg .ROUTE .STK-MED ONE Stop: 06/17/20 22:15 Ketorolac Tromethamine (Toradol) 15 mg IVPUSH Q6H [facility] Stop: 06/18/20 00:01 Last Admin: 06/18/20 00:44 Dose: 15 mg Documented by: Ketorolac Tromethamine (Toradol) 15 mg IVPUSH Q6H [facility] Last Admin: 06/18/20 06:10 Dose: 15 mg Documented by: Ketorolac Tromethamine (Toradol) 15 mg IVPUSH Q6H [facility] Last Admin: 06/20/20 05:46 Dose: Not Given Documented by: Midazolam HCl (Versed 1 Mg/Ml) Confirm Administered Dose 2 mg .ROUTE .STK-MED ONE Stop: 06/17/20 21:34 Miscellaneous Medication (Phenylephrine 1 Mg/10 Ml-Ns) Confirm Administered Dose 1 mg IV .STK-MED ONE Stop: 06/17/20 22:07 Morphine Sulfate (Morphine) 1 mg IVPUSH Q4H PRN PRN Reason: Pain (severe 7-10) Last Admin: 06/17/20 17:14 Dose: 1 mg Documented by: Morphine Sulfate (Morphine) 1 mg IVPUSH ONETIME ONE Stop: 06/17/20 20:42 Last Admin: 06/17/20 20:50 Dose: 1 mg Documented by: Neostigmine Methylsulfate (Neostigmine Methylsulfate) Confirm Administered Dose 5 mg .ROUTE .STK-MED ONE Stop: 06/17/20 22:37 Ondansetron HCl (Zofran) 4 mg IVPUSH ONETIME ONE Stop: 06/17/20 10:00 Last Admin: 06/17/20 10:26 Dose: 4 mg Documented by: Ondansetron HCl (Zofran) Confirm Administered Dose 4 mg .ROUTE .STK-MED ONE Stop: 06/17/20 10:22 Last Admin: 06/17/20 10:29 Dose: Not Given Documented by: Ondansetron HCl (Zofran) Confirm Administered Dose 4 mg .ROUTE .STK-MED ONE Stop: 06/17/20 21:33 Propofol (Diprivan 20 Ml) Confirm Administered Dose 200 mg .ROUTE .STK-MED ONE Stop: 06/17/20 21:34 Rocuronium [place] (Zemuron) Confirm Administered Dose 50 mg .ROUTE .STK-MED ONE Stop: 06/17/20 21:33 Sodium Chloride (Saline Flush) 10 ml FLUSH ASDIRECTED PRN PRN Reason: Keep Vein Open Last Admin: 06/17/20 10:27 Dose: 10 ml Documented by:
== END 2020-06-21 11:06 | disposition home or self-care (01) | DRG 335 ==
LOC: JD.ED 09:18 → JD.MS 14:14
PROVIDERS: ADMIT Surgery; ATTEND Surgery
PROC: 0DN80ZZ Release Small Intestine, Open Approach (ICD-10-PCS; principal; 2020-06-17)
DX: K56.609 Unspecified intestinal obstruction, unspecified as to partial versus complete obstruction (principal); Z98.890 Other specified postprocedural states; F17.200 Nicotine dependence, unspecified, uncomplicated; K56.50 Intestinal adhesions [bands], unspecified as to partial versus complete obstruction; K65.9 Peritonitis, unspecified; F17.210 Nicotine dependence, cigarettes, uncomplicated; Z90.49 Acquired absence of other specified parts of digestive tract; Z20.828 Contact with and (suspected) exposure to other viral communicable diseases
CPT/HCPCS: 00840; 36415; 71045; 71045-26; 74019; 74019-26; 74177; 74177-26; 80048; 80053; 83690; 85025; 86140; 93005; 94640; 94760; 96361; 96374; 96375; 99284; 99285-25; A9270-GY; C9113; J0330; J0690; J1170; J1644; J1885; J2001; J2250; J2270; J2370; J2405; J2704; J2710; J3010; J3480; J3490; J7030; J7120; Q9963; Q9967; U0002